=== PATIENT | female | born 2000 | race Two or more races ===

== ENCOUNTER 2024-07-03 18:54 | Emergency (ER) | payer OTHER ==
[~2024-07-03] VITALS: Ht 157.5 cm; Wt 70.2 kg
[2024-07-03 19:33] VITALS: BP 112/74; PULSE 107; RESP 16; O2SAT 99
[2024-07-03] MEDS ORDERED: ACET500T58 PO (21:02)
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
[2024-07-03] MEDS ORDERED: PRED20TA2 PO (21:10)
== END 2024-07-03 21:16 | disposition home or self-care (01) ==
LOC: ER 18:54
DX: S29.012A Strain of muscle and tendon of back wall of thorax, initial encounter (principal); F41.9 Anxiety disorder, unspecified; Z79.52 Long term (current) use of systemic steroids; Z79.899 Other long term (current) drug therapy; V89.2XXA Person injured in unspecified motor-vehicle accident, traffic, initial encounter; Y93.I9 Activity, other involving external motion; Y92.89 Other specified places as the place of occurrence of the external cause; Y99.8 Other external cause status